=== PATIENT | female | born 1945 | race Caucasian/White ===

== ENCOUNTER 2016-10-17 08:57 | Inpatient (IN) | payer OTHER, MEDICARE ==
[2016-10-16 08:41] VITALS: Ht 157.5 cm; Wt 45.4 kg
[~2016-10-17] VITALS: Ht 157.5 cm; Wt 45.4 kg
[2016-10-17] VITALS (16 sets, daily range): BP systolic 133–166; RESP 16–20; TEMP 97.4–99.6
[~2016-10-17 08:57] MED LIST: BACITRACIN 50,000 UNITS INJ IRRIG ONE; DEXAMETHASONE 4 MG/ML VIAL IV ONE; DILAUDID 1 MG/ML AMP IV ONE; FENTANYL 100 MCG/2 ML AMP IV ONE; GLYCOPYRROLATE 0.2 MG/ML VIAL IV ONE; LIDOCAINE 2% SYR 5 ML IV ONE; NEOSTIGMINE 10 MG/10 ML VIAL IV ONE; ONDANSETRON 4 MG VIAL IV PUSH ONE; PROPOFOL 50ML PER ML IV ONE; ROCURONIUM 50 MG VIAL IV ONE
[2016-10-17] MEDS ORDERED: CEFAZOLIN 2,000 MG in SODIUM CHLORIDE 0.9% 100 ML IV ONE (09:50)
[2016-10-17] MEDS ORDERED: LACT RINGERS 1,000 ML IV SCH (10:40)
[2016-10-17] MEDS ORDERED: MIDAZOLAM 2 MG/2 ML INJ IV ONE (10:40)
[2016-10-17] MEDS ORDERED: LIDOCAINE 1% BUFFERED 1 ML SYR INTRADERM PRN (10:40)
[2016-10-17] MEDS ORDERED: GLYCOPYRROLATE 0.2 MG/ML VIAL IV ONE (10:40)
[2016-10-17] MEDS ORDERED: MEPERIDINE 25 MG/ML IV PRN (12:05)
[2016-10-17] MEDS ORDERED: MORPHINE 2 MG/ML SYR IV PRN (12:05)
[2016-10-17] MEDS ORDERED: OXYCODONE 5 MG TAB PO PRN (12:05)
[2016-10-17] MEDS ORDERED: MORPHINE 4 MG/ML SYR IV PRN ×2 (12:05→12:50)
[2016-10-17] MEDS ORDERED: ONDANSETRON 4 MG VIAL IV PRN ×2 (12:05→12:50)
[2016-10-17] MEDS ORDERED: MAG HYDROX 30 ML UDC PO PRN (12:50)
[2016-10-17] MEDS ORDERED: D5-1/2-NS W/KCL 20MEQ/L 1,000 ML IV SCH (12:50)
[2016-10-17] MEDS ORDERED: SALINE FLUSH 10 ML FLUSH PRN (12:50)
[2016-10-17] MEDS ORDERED: ONDANSETRON 4 MG TAB PO PRN (12:50)
[2016-10-17] MEDS ORDERED: TEMAZEPAM 7.5 MG CAP PO PRN (12:50)
[2016-10-17] MEDS: DILAUDID 1 MG/ML AMP IV PRN ×2 (13:28→13:46)
[2016-10-17] MEDS: MULTIVITS/MINERALS (THERAGRAN M) TAB PO SCH (14:07)
[2016-10-17] MEDS: MORPHINE 2 MG/ML SYR IV PRN ×2 (17:22→23:06)
[2016-10-17] MEDS: CEFAZOLIN 2,000 MG in SODIUM CHLORIDE 0.9% 100 ML IV SCH ×2 (17:40→23:05)
[2016-10-17] MEDS ORDERED: KETOROLAC 15 MG/ML VIAL IV ONE (19:15)
[2016-10-17] MEDS: SALINE FLUSH 10 ML FLUSH SCH (19:57)
[2016-10-17] MEDS: GUAIFEN/DM 600/30 TAB PO SCH (20:08)
[2016-10-17] MEDS: DOCUSATE SOD 100 MG CAP PO SCH (20:08)
[2016-10-17] MEDS: SENNA 8.6 MG TAB PO SCH (20:08)
[2016-10-17] MEDS: FAMOTIDINE 20 MG TAB PO SCH (20:08)
[2016-10-17] MEDS: NEB-XOPENEX 0.63 MG/3 ML INH SCH ×2 (20:40→22:16)
[2016-10-17] MEDS ORDERED: DOCUSATE SOD 100 MG CAP PO SCH (21:00)
[2016-10-18 05:00] VITALS: BP_SYST 129; RESP 18; TEMP 97.8
[2016-10-18] MEDS: SODIUM CHLORIDE 0.9% FLUSH BAG 500 ML IV SCH (05:19)
[2016-10-18] MEDS: CEFAZOLIN 2,000 MG in SODIUM CHLORIDE 0.9% 100 ML IV SCH ×2 (05:20→11:32)
[2016-10-18] MEDS: ENOXAPARIN 30 MG/0.3 ML SYR SUBQ SCH (05:36)
[2016-10-18] MEDS: NEB-XOPENEX 0.63 MG/3 ML INH SCH ×3 (06:59→19:41)
[2016-10-18 07:49] VITALS: BP_SYST 119; RESP 16; TEMP 98.5
[2016-10-18] MEDS: FAMOTIDINE 20 MG TAB PO SCH ×2 (09:13→20:29)
[2016-10-18] MEDS: GUAIFEN/DM 600/30 TAB PO SCH ×2 (09:13→20:29)
[2016-10-18] MEDS: POLYETHYLENE GLYCOL 17 GM PACKET PO SCH (09:13)
[2016-10-18] MEDS: MAG HYDROX 30 ML UDC PO SCH ×2 (09:13→20:00)
[2016-10-18] MEDS: SENNA 8.6 MG TAB PO SCH ×2 (09:14→20:29)
[2016-10-18] MEDS: DOCUSATE SOD 100 MG CAP PO SCH ×2 (09:14→20:29)
[2016-10-18] MEDS: MULTIVITS/MINERALS (THERAGRAN M) TAB PO SCH (09:14)
[2016-10-18] MEDS: SALINE FLUSH 10 ML FLUSH SCH ×2 (09:15→20:29)
[2016-10-18 11:45] VITALS: BP_SYST 134; RESP 16; TEMP 97.9
[2016-10-18] MEDS ORDERED: BISACODYL 10 MG SUPP RECTAL PRN (14:30)
[2016-10-18] MEDS ORDERED: FLEET ENEMA 132 ML BTL RECTAL PRN (14:30)
[2016-10-18 15:27] VITALS: BP_SYST 116; RESP 16; TEMP 98.2
[2016-10-18 20:29] VITALS: BP_SYST 123; RESP 16; TEMP 98.1
[2016-10-18 22:34] VITALS: BP_SYST 114; RESP 16; TEMP 97.5
[2016-10-19] MEDS: NEB-XOPENEX 0.63 MG/3 ML INH SCH ×5 (00:50→23:00)
[2016-10-19 03:31] VITALS: BP_SYST 131; RESP 16; TEMP 98.2
[2016-10-19] MEDS: SODIUM CHLORIDE 0.9% FLUSH BAG 500 ML IV SCH (06:00)
[2016-10-19] MEDS: ENOXAPARIN 30 MG/0.3 ML SYR SUBQ SCH (06:23)
[2016-10-19 07:00] VITALS: BP_SYST 134; RESP 18; TEMP 98.4
[2016-10-19] MEDS: FAMOTIDINE 20 MG TAB PO SCH ×2 (08:02→19:51)
[2016-10-19] MEDS: MAG HYDROX 30 ML UDC PO SCH ×3 (08:02→19:43)
[2016-10-19] MEDS: DOCUSATE SOD 100 MG CAP PO SCH ×2 (08:02→19:52)
[2016-10-19] MEDS: POLYETHYLENE GLYCOL 17 GM PACKET PO SCH (08:02)
[2016-10-19] MEDS: SENNA 8.6 MG TAB PO SCH ×2 (08:02→19:52)
[2016-10-19] MEDS: MULTIVITS/MINERALS (THERAGRAN M) TAB PO SCH (08:02)
[2016-10-19] MEDS: GUAIFEN/DM 600/30 TAB PO SCH ×2 (08:02→19:51)
[2016-10-19] MEDS: SALINE FLUSH 10 ML FLUSH SCH ×2 (08:04→19:52)
[2016-10-19 11:00] VITALS: BP_SYST 120; RESP 18; TEMP 98.4
[2016-10-19 15:00] VITALS: BP_SYST 145; RESP 18; TEMP 97.6
[2016-10-19 19:51] VITALS: BP_SYST 137; RESP 18; TEMP 98.3
[2016-10-19 23:37] VITALS: BP_SYST 155; RESP 18; TEMP 98.3
[2016-10-20 03:45] VITALS: BP_SYST 145; RESP 18; TEMP 98.6
[2016-10-20] MEDS: SODIUM CHLORIDE 0.9% FLUSH BAG 500 ML IV SCH (05:03)
[2016-10-20] MEDS: ENOXAPARIN 30 MG/0.3 ML SYR SUBQ SCH (05:07)
[2016-10-20] MEDS: NEB-XOPENEX 0.63 MG/3 ML INH SCH ×2 (06:42→15:00)
[2016-10-20 07:00] VITALS: BP_SYST 140; RESP 18; TEMP 98
[2016-10-20] MEDS: MAG HYDROX 30 ML UDC PO SCH ×2 (08:00→08:09)
[2016-10-20] MEDS: DOCUSATE SOD 100 MG CAP PO SCH (08:08)
[2016-10-20] MEDS: FAMOTIDINE 20 MG TAB PO SCH (08:08)
[2016-10-20] MEDS: SENNA 8.6 MG TAB PO SCH (08:08)
[2016-10-20] MEDS: GUAIFEN/DM 600/30 TAB PO SCH (08:08)
[2016-10-20] MEDS: MULTIVITS/MINERALS (THERAGRAN M) TAB PO SCH (08:08)
[2016-10-20] MEDS: POLYETHYLENE GLYCOL 17 GM PACKET PO SCH (08:08)
[2016-10-20] MEDS: SALINE FLUSH 10 ML FLUSH SCH (08:09)
[2016-10-20 11:00] VITALS: BP_SYST 135; RESP 18; TEMP 98.3
[2016-10-20 14:52] VITALS: BP_SYST 135; RESP 18; TEMP 98.3
[2016-10-20 15:00] VITALS: BP_SYST 119; RESP 18; TEMP 98.3
== END 2016-10-20 15:51 | disposition home health service (06) | DRG 517 ==
LOC: ENRESERVTM → ENRESERVDT → OSEC 08:57 → 2NO 13:54 → ENPENDDIS 10-18 19:47 → UNDOADMIN 10-18 19:47 → OSEC 10-18 20:33 → EMR 10-18 20:33 → UNDODISIN 10-20 15:51
PROVIDERS: ADMIT Internal Medicine; ATTEND Internal Medicine
PROC: 0QSF04Z Reposition Left Patella with Internal Fixation Device, Open Approach (ICD-10-PCS; principal; 2016-10-17 11:36)
DX: S82.002A Unspecified fracture of left patella, initial encounter for closed fracture (principal); J44.9 Chronic obstructive pulmonary disease, unspecified; V47.0XXA Car driver injured in collision with fixed or stationary object in nontraffic accident, initial encounter; F17.210 Nicotine dependence, cigarettes, uncomplicated; I10 Essential (primary) hypertension; R26.2 Difficulty in walking, not elsewhere classified
CPT/HCPCS: 36415; 76000; 80053; 85025; 94640; 94762; 94799